=== PATIENT | male | born 1975 | race Asian ===

== ENCOUNTER 2021-08-23 18:22 | Emergency (ER) | payer BC ==
[~2021-08-23] VITALS: Ht 172.7 cm; Wt 74.8 kg
--- NOTE | 2021-08-23 18:40 | NUR ---
THE PATIENT SENT HERE FROM URGENT CARE FOR FURTHER EVAL,FEVER SINCE LAST NIGHT. NO COUGH. RESPIRATION REGULAR AND UNLABORED. DENIES PAIN. WILL CONTINUE TO MONITOR THE PATIENT.
--- NOTE | 2021-08-23 18:59 | NUR ---
URINE COLLECTED AND SENT TO THE LAB
--- NOTE | 2021-08-23 19:20 | NUR ---
REPORT GIVEN TO NURSE ASKEW
[2021-08-23 19:23] LABS: BILIRUBIN,URINE MODERATE (NEGATIVE); COLOR,URINE DARK YELLOW (YELLOW); LEUKOCYTE ESTERASE ,URINE Negative (NEGATIVE); NITRITE, URINE Negative (NEGATIVE); PROTEIN,URINE 30 mg/dl (NEGATIVE); UGLUCOSE Negative (NEGATIVE)
[2021-08-23 19:28] LABS: BACTERIA,URINE Rare /HPF (None Seen); RBC,URINE NONE SEEN /HPF (0-2); SQUAMOUS EPITHELIAL CELL,UR Few /HPF (None Seen); WBC,URINE NONE SEEN /HPF (0-3)
[2021-08-23 20:25] VITALS: BP 116/64
[2021-08-23] MEDS ORDERED: LEVO500T90 PO (20:25)
[2021-08-23] MEDS ORDERED: DICY10CA37 PO (20:25)
--- NOTE | 2021-08-23 20:25 | NUR ---
Patient discharged to home in stable condition. Written and verbal after care instructions given. Patient verbalizes understanding of instruction.
== END 2021-08-23 20:57 | disposition home or self-care (01) ==
LOC: ER 18:26
DX: K80.20 Calculus of gallbladder without cholecystitis without obstruction (principal); N41.9 Inflammatory disease of prostate, unspecified
CPT/HCPCS: 76705-TC; 81001; 87086-TC